=== PATIENT | female | born 1935 | race Caucasian/White ===

== ENCOUNTER 2020-07-21 14:07 | Inpatient (IN) ==
[2020-07-21] MEDS ORDERED: PANTOPRAZOLE 40 MG VIAL IV STA (15:41)
[2020-07-21] MEDS ORDERED: ONDANSETRON 4 MG/2 ML VIAL IV STA (15:41)
[2020-07-21] MEDS ORDERED: SODIUM CHLORIDE 0.9% 500 ML IV STA (15:41)
[2020-07-21 16:44] LABS: Basophils % 0.1 % (0.0-0.8); Hematocrit 42.2 VOL% (35.7-47.0); Hemoglobin 13.5 GM/DL (12.0-16.0); Immature Granulocytes % 0.4 %; Immature Granulocytes Absolute 0.03 #; Lymphocytes # 0.8 10*3/uL (1.4-4.0); Lymphocytes % 10.5 % (21.3-54.2); Mean Corpuscular Volume 95.5 FL (87-102); Mean Platelet Volume 10.8 FL (9.6-12.0); Monocytes % 8.6 % (1.7-12.7); Neutrophils % 80.4 % (38.7-73.9); Platelet Count 122 T/CUMM (130-400); Red Blood Count 4.42 MC/CUMM (3.8-5.5); Red Cell Distribution Width 14.2 % (9.3-17.3); White Blood Count 7.3 T/CUMM (4-12)
[2020-07-21 16:55] LABS: Bilirubin,Urine Negative (Negative); Blood, Urine Moderate mg/dL (Negative); Glucose,Urine (UA) Negative (Negative); Ketones,Urine Negative (Negative); Mucus,Urine Occasional /LPF (Occasional); Nitrite,Urine Positive (Negative); Protein,Urine 100 MG/DL; RBC,Urine 42 /HPF (0-4); Squamous Epithelial Cell,Urine Occasional /HPF (0-10); Urine Appearance CLOUDY (Clear); Urine Color Yellow (Yellow); Urine Specific Gravity 1.009 (1.001-1.035); Urine Urobilinogen < 2.0 EU/DL (0.2-1.0)
[2020-07-21 17:05] LABS: Albumin 3.9 G/DL (3.4-5.0); Bilirubin,Total 0.9 MG/DL (0.2-1.0); Calcium 9.2 MG/DL (8.5-10.1); Osmolality,Calculated 287.1 MOS/KG (273-304); Potassium 4.2 MMOL/L (3.5-5.1); Total Protein 7.4 G/DL (6.4-8.2)
[2020-07-21] MEDS ORDERED: cefTRIAXone 1,000 MG in SODIUM CHLORIDE 0.9% 100 ML IV STA (17:48)
[2020-07-21] MEDS ORDERED: ONDANSETRON 4 MG/2 ML VIAL IV PRN (18:06)
[2020-07-21] MEDS ORDERED: ACETAMINOPHEN 325 MG TABLET PO PRN (18:06)
[2020-07-21] MEDS ORDERED: LEVOFLOXACIN INJ 500 MG/100 ML PREMIX IV ONE (18:30)
[2020-07-21] MEDS ORDERED: ACETAMINOPHEN 325 MG SUPP RECTAL STA (19:51)
[2020-07-21] MEDS ORDERED: ACETAMINOPHEN 650 MG SUPP RECTAL STA (19:51)
[2020-07-21] MEDS: DOCUSATE SODIUM 100 MG CAPSULE PO SCH (22:05)
[2020-07-22] MEDS: SODIUM CHLORIDE 0.45% 1,000 ML IV SCH ×3 (02:00→21:19)
[2020-07-22 05:29] LABS: Basophils % 0.2 % (0.0-0.8); Immature Granulocytes % 0.5 %; Immature Granulocytes Absolute 0.04 #; Lymphocytes # 1.5 10*3/uL (1.4-4.0); Lymphocytes % 17.1 % (21.3-54.2); Mean Corpuscular HGB Conc 31.8 GM/DL (32-36); Mean Corpuscular Volume 98.3 FL (87-102); Mean Platelet Volume 11.9 FL (9.6-12.0); Monocytes % 15.3 % (1.7-12.7); Neutrophils % 66.9 % (38.7-73.9); Platelet Count 114 T/CUMM (130-400); Red Blood Count 3.46 MC/CUMM (3.8-5.5); Red Cell Distribution Width 14.7 % (9.3-17.3); White Blood Count 8.7 T/CUMM (4-12)
[2020-07-22 05:30] LABS: Hemoglobin 10.8 GM/DL (12.0-16.0)
[2020-07-22 05:34] LABS: Calcium 8.4 MG/DL (8.5-10.1); Osmolality,Calculated 286.3 MOS/KG (273-304); Potassium 3.9 MMOL/L (3.5-5.1)
[2020-07-22 05:59] LABS: Hypochromasia 1+; Lymphocytes 21 % (20-55); Microcytosis 1+; Segmented Neutrophils 71 % (50-85); Total Cells Counted 100
[2020-07-22] MEDS ORDERED: LOSARTAN 50 MG TABLET PO SCH (09:00)
[2020-07-22] MEDS: ENOXAPARIN 40 MG/0.4 ML SYRINGE SUBCUT SCH ×2 (10:01→18:07)
[2020-07-22] MEDS: ASPIRIN EC 81 MG TABLET PO SCH (10:38)
[2020-07-22] MEDS: LEVOTHYROXINE 75 MCG TABLET PO SCH (10:38)
[2020-07-22] MEDS: PANTOPRAZOLE 40 MG TABLET PO SCH (10:48)
[2020-07-22] MEDS: DOCUSATE SODIUM 100 MG CAPSULE PO SCH ×2 (10:48→21:22)
[2020-07-22] MEDS: METOPROLOL SUCCINATE XL 25 MG TABLET PO SCH (10:49)
[2020-07-22] MEDS: LEVOFLOXACIN INJ 250 MG/50 ML PREMIX IV SCH (18:07)
[2020-07-22] MEDS: SIMVASTATIN 40 MG TABLET PO SCH (21:21)
[2020-07-23] MEDS: SODIUM CHLORIDE 0.45% 1,000 ML IV SCH ×3 (05:19→22:36)
[2020-07-23 05:52] LABS: Basophils % 0.2 % (0.0-0.8); Eosinophils % 0.5 % (0.00-10.9); Hematocrit 31.6 VOL% (35.7-47.0); Immature Granulocytes % 0.5 %; Immature Granulocytes Absolute 0.02 #; Lymphocytes % 22.9 % (21.3-54.2); Mean Corpuscular HGB Conc 31.6 GM/DL (32-36); Mean Corpuscular Volume 96.9 FL (87-102); Mean Platelet Volume 11.7 FL (9.6-12.0); Monocytes % 10.8 % (1.7-12.7); Neutrophils % 65.1 % (38.7-73.9); Red Blood Count 3.26 MC/CUMM (3.8-5.5); Red Cell Distribution Width 14.3 % (9.3-17.3)
[2020-07-23 05:55] LABS: Platelet Count 98 T/CUMM (130-400); White Blood Count 4.2 T/CUMM (4-12)
[2020-07-23 06:10] LABS: Hypochromasia 1+; Microcytosis 1+; Platelet Estimate Decreased
[2020-07-23 08:09] LABS: Calcium 8.1 MG/DL (8.5-10.1); Potassium 4.1 MMOL/L (3.5-5.1)
[2020-07-23] MEDS: LOSARTAN 50 MG TABLET PO SCH (10:06)
[2020-07-23] MEDS: LEVOTHYROXINE 75 MCG TABLET PO SCH (10:06)
[2020-07-23] MEDS: DOCUSATE SODIUM 100 MG CAPSULE PO SCH ×2 (10:06→20:56)
[2020-07-23] MEDS: PANTOPRAZOLE 40 MG TABLET PO SCH (10:06)
[2020-07-23] MEDS: METOPROLOL SUCCINATE XL 25 MG TABLET PO SCH (10:06)
[2020-07-23] MEDS ORDERED: TUBERCULIN SKIN TEST 0.1 ML SYRINGE INTRADERM ONE (10:27)
[2020-07-23] MEDS: ASPIRIN EC 81 MG TABLET PO SCH (10:59)
[2020-07-23] MEDS: LEVOFLOXACIN INJ 250 MG/50 ML PREMIX IV SCH (17:36)
[2020-07-23] MEDS: ENOXAPARIN 40 MG/0.4 ML SYRINGE SUBCUT SCH (17:37)
[2020-07-23] MEDS: SIMVASTATIN 40 MG TABLET PO SCH (20:57)
[2020-07-24 05:57] LABS: Basophils % 0.6 % (0.0-0.8); Eosinophils % 0.9 % (0.00-10.9); Hematocrit 35.3 VOL% (35.7-47.0); Hemoglobin 11.2 GM/DL (12.0-16.0); Immature Granulocytes % 0.3 %; Immature Granulocytes Absolute 0.01 #; Lymphocytes # 0.9 10*3/uL (1.4-4.0); Lymphocytes % 27.7 % (21.3-54.2); Mean Corpuscular HGB Conc 31.7 GM/DL (32-36); Mean Corpuscular Volume 97.2 FL (87-102); Mean Platelet Volume 11.5 FL (9.6-12.0); Monocytes % 9.5 % (1.7-12.7); Platelet Count 118 T/CUMM (130-400); Red Blood Count 3.63 MC/CUMM (3.8-5.5); White Blood Count 3.3 T/CUMM (4-12)
[2020-07-24 06:13] LABS: Calcium 8.8 MG/DL (8.5-10.1); Osmolality,Calculated 287.7 MOS/KG (273-304)
[2020-07-24 06:20] LABS: Eosinophils 1 % (0-10); Lymphocytes 20 % (20-55); Segmented Neutrophils 68 % (50-85); Total Cells Counted 100
[2020-07-24 06:21] LABS: Platelet Estimate Normal
[2020-07-24] MEDS: SODIUM CHLORIDE 0.45% 1,000 ML IV SCH ×2 (06:24→10:25)
[2020-07-24 07:24] VITALS: BP 147/75
[2020-07-24] MEDS: ASPIRIN EC 81 MG TABLET PO SCH (09:19)
[2020-07-24] MEDS: LOSARTAN 50 MG TABLET PO SCH (09:19)
[2020-07-24] MEDS: LEVOTHYROXINE 75 MCG TABLET PO SCH (09:19)
[2020-07-24] MEDS: DOCUSATE SODIUM 100 MG CAPSULE PO SCH (09:19)
[2020-07-24] MEDS: PANTOPRAZOLE 40 MG TABLET PO SCH (09:19)
[2020-07-24] MEDS: METOPROLOL SUCCINATE XL 25 MG TABLET PO SCH (09:19)
== END 2020-07-24 11:15 | disposition home health service (06) | DRG 690 ==
LOC: N.EDINP 14:07 → N.ED 14:07 → N.EDINP 21:05 → N.3E 21:06
PROVIDERS: ADMIT Internal Medicine; ATTEND Internal Medicine

== ENCOUNTER 2021-09-18 13:22 | Inpatient (IN) ==
[2021-09-18] MEDS ORDERED: ACETAMINOPHEN 325 MG TABLET PO PRN (15:34)
[2021-09-18] MEDS ORDERED: ONDANSETRON 4 MG/2 ML VIAL IV PRN (15:34)
[2021-09-18] MEDS ORDERED: LACTULOSE 20 GM/30 ML UDCUP PO PRN (15:34)
[2021-09-18] MEDS: SODIUM CHLORIDE 0.45% 1,000 ML IV SCH (16:30)
[2021-09-18] MEDS: cefTRIAXone 1,000 MG in SODIUM CHLORIDE 0.9% 100 ML IV SCH (17:16)
[2021-09-18] MEDS: MELATONIN 3 MG TABLET PO SCH (21:42)
[2021-09-18] MEDS: DEXAMETHASONE 4 MG TABLET PO SCH (21:42)
[2021-09-18] MEDS: ENOXAPARIN 30 MG/0.3 ML SYRINGE SUBCUT SCH (21:42)
[2021-09-18 22:09] LABS: Bilirubin,Urine Negative (Negative); Blood, Urine Trace mg/dL (Negative); Glucose,Urine (UA) Negative (Negative); Hyaline Casts,Urine 7 /LPF (0-3); Ketones,Urine Negative (Negative); Mucus,Urine Occasional /LPF (Occasional); Nitrite,Urine Negative (Negative); Protein,Urine Negative (Negative); RBC,Urine 5 /HPF (0-4); Squamous Epithelial Cell,Urine Moderate /HPF (0-10); Urine Appearance Clear (Clear); Urine Color Yellow (Yellow); Urine Specific Gravity 1.015 (1.001-1.035)
[2021-09-18] MEDS: AZITHROMYCIN INJ 250 MG in SODIUM CHLORIDE 0.9% 250 ML IV SCH (22:55)
[2021-09-19 05:45] LABS: Basophils % 0.2 % (0.0-0.8); Eosinophils % 0.2 % (0.00-10.9); Hematocrit 33.5 VOL% (35.7-47.0); Hemoglobin 10.6 GM/DL (12.0-16.0); Immature Granulocytes % 0.4 %; Immature Granulocytes Absolute 0.02 #; Lymphocytes # 1.6 10*3/uL (1.4-4.0); Lymphocytes % 30.9 % (21.3-54.2); Mean Corpuscular HGB Conc 31.6 GM/DL (32-36); Mean Corpuscular Volume 97.7 FL (87-102); Mean Platelet Volume 11.6 FL (9.6-12.0); Monocytes # 0.2 10*3/uL (0.11-0.8); Monocytes % 4.2 % (1.7-12.7); Neutrophils % 64.1 % (38.7-73.9); Platelet Count 111 T/CUMM (130-400); Red Blood Count 3.43 MC/CUMM (3.8-5.5); White Blood Count 5.3 T/CUMM (4-12)
[2021-09-19 06:21] LABS: Alanine Aminotransferase 11 U/L (13-56); Albumin 2.7 G/DL (3.4-5.0); Alkaline Phosphatase 67 U/L (45-117); Aspartate Amino Transferase 21 U/L (0-37); Bilirubin,Total < 0.39 MG/DL (0.20-1.00); Blood Urea Nitrogen 37 MG/DL (7-18); Calcium 8.9 MG/DL (8.5-10.1); Carbon Dioxide 28 MMOL/L (21-32); Chloride 107 MMOL/L (98-107); Glucose 141 MG/DL (74-106); Osmolality,Calculated 289.4 MOS/KG (273-304); Sodium 140 MMOL/L (136-145); Total Protein 6.1 G/DL (6.4-8.2)
[2021-09-19 06:58] LABS: Platelet Estimate Normal
[2021-09-19] MEDS: SODIUM CHLORIDE 0.45% 1,000 ML IV SCH ×4 (07:34→21:54)
[2021-09-19] MEDS: DEXAMETHASONE 4 MG TABLET PO SCH ×2 (08:33→20:53)
[2021-09-19] MEDS: ZINC SULFATE 220 MG CAPSULE PO SCH (08:33)
[2021-09-19] MEDS: PANTOPRAZOLE 40 MG TABLET PO SCH (08:34)
[2021-09-19] MEDS: guaiFENesin 200 MG/10 ML UDCUP PO PRN ×2 (10:07→16:24)
[2021-09-19] MEDS: cefTRIAXone 1,000 MG in SODIUM CHLORIDE 0.9% 100 ML IV SCH (16:20)
[2021-09-19] MEDS: AZITHROMYCIN INJ 250 MG in SODIUM CHLORIDE 0.9% 250 ML IV SCH (20:54)
[2021-09-19] MEDS: ENOXAPARIN 30 MG/0.3 ML SYRINGE SUBCUT SCH (20:54)
[2021-09-19] MEDS: MELATONIN 3 MG TABLET PO SCH (20:54)
[2021-09-20] MEDS: SODIUM CHLORIDE 0.45% 1,000 ML IV SCH ×2 (09:50→21:23)
[2021-09-20] MEDS: ZINC SULFATE 220 MG CAPSULE PO SCH (09:51)
[2021-09-20] MEDS: DEXAMETHASONE 4 MG TABLET PO SCH ×2 (09:51→21:23)
[2021-09-20] MEDS: PANTOPRAZOLE 40 MG TABLET PO SCH (09:51)
[2021-09-20] MEDS: guaiFENesin 200 MG/10 ML UDCUP PO PRN ×2 (16:23→21:23)
[2021-09-20] MEDS: cefTRIAXone 1,000 MG in SODIUM CHLORIDE 0.9% 100 ML IV SCH (16:23)
[2021-09-20] MEDS: AZITHROMYCIN INJ 250 MG in SODIUM CHLORIDE 0.9% 250 ML IV SCH (21:22)
[2021-09-20] MEDS: MELATONIN 3 MG TABLET PO SCH (21:23)
[2021-09-20] MEDS: ENOXAPARIN 30 MG/0.3 ML SYRINGE SUBCUT SCH (21:23)
[2021-09-21] MEDS: PANTOPRAZOLE 40 MG TABLET PO SCH (08:29)
[2021-09-21] MEDS: DEXAMETHASONE 4 MG TABLET PO SCH (08:30)
[2021-09-21] MEDS: ZINC SULFATE 220 MG CAPSULE PO SCH (08:30)
[2021-09-21 09:11] LABS: Basophils % 0.1 % (0.0-0.8); Hematocrit 36.1 VOL% (35.7-47.0); Hemoglobin 11.4 GM/DL (12.0-16.0); Immature Granulocytes % 2.4 %; Immature Granulocytes Absolute 0.16 #; Lymphocytes # 1.1 10*3/uL (1.4-4.0); Lymphocytes % 16.4 % (21.3-54.2); Mean Corpuscular HGB Conc 31.6 GM/DL (32-36); Mean Corpuscular Volume 97.3 FL (87-102); Mean Platelet Volume 10.8 FL (9.6-12.0); Monocytes # 0.2 10*3/uL (0.11-0.8); Monocytes % 3.5 % (1.7-12.7); Neutrophils % 77.6 % (38.7-73.9); Platelet Count 160 T/CUMM (130-400); Red Blood Count 3.71 MC/CUMM (3.8-5.5); White Blood Count 6.8 T/CUMM (4-12)
[2021-09-21] MEDS: SODIUM CHLORIDE 0.45% 1,000 ML IV SCH (09:57)
[2021-09-21 10:37] LABS: Calcium 8.9 MG/DL (8.5-10.1); Osmolality,Calculated 288.1 MOS/KG (273-304); Potassium 3.8 MMOL/L (3.5-5.1)
[2021-09-21] MEDS: guaiFENesin 200 MG/10 ML UDCUP PO PRN (11:23)
[2021-09-21 12:36] VITALS: BP 136/82
[2021-09-21] MEDS ORDERED: MEMANTINE 5 MG TABLET PO SCH (21:00)
[2021-09-21] MEDS ORDERED: SIMVASTATIN 40 MG TABLET PO SCH (21:00)
[2021-09-22] MEDS ORDERED: LEVOTHYROXINE 75 MCG TABLET PO SCH (06:30)
[2021-09-22] MEDS ORDERED: NON-FORMULARY MEDICATION (Omeprazole 20 MG capsule,delayed release(DR/EC)) PO SCH (09:00)
[2021-09-22] MEDS ORDERED: MULTIVITAMIN (CENTRUM) TABLET PO SCH (09:00)
[2021-09-22] MEDS ORDERED: ASPIRIN EC 81 MG TABLET PO SCH (09:00)
[2021-09-22] MEDS ORDERED: METOPROLOL SUCCINATE XL 25 MG TABLET PO SCH (09:00)
== END 2021-09-21 14:41 | disposition home health service (06) | DRG 689 ==
LOC: N.5E 15:38
PROVIDERS: ADMIT Internal Medicine; ATTEND Internal Medicine